=== PATIENT | male | born 1965 | race Caucasian/White ===

== ENCOUNTER 2024-12-02 17:22 | Emergency (ER) | payer BC | END 2024-12-02 18:29 | disposition home or self-care (01) | LOC: JP.ED 17:22 | DX: S50.861A Insect bite (nonvenomous) of right forearm, initial encounter (principal); I10 Essential (primary) hypertension; F17.210 Nicotine dependence, cigarettes, uncomplicated; W57.XXXA Bitten or stung by nonvenomous insect and other nonvenomous arthropods, initial encounter; Y93.89 Activity, other specified | CPT/HCPCS: 99281 ==